=== PATIENT | male | born 1950 | race Two or more races ===

== ENCOUNTER 2020-01-23 17:07 | Emergency (ER) | payer OTHER ==
[~2020-01-23] VITALS: Ht 175.3 cm; Wt 90.0 kg
[2020-01-23] MEDS ORDERED: SODIUM CHLORIDE 0.9% 1,000 ML IV ONE (18:28)
[2020-01-23] MEDS ORDERED: DICYCLOMINE 10 MG/5 ML ORAL SYR PO STA (18:28)
[2020-01-23] MEDS ORDERED: MAGNESIUM/ALUMINUM HYDROXIDE/SIMETHICONE 30ML UDC PO STA (18:28)
[2020-01-23] MEDS ORDERED: ONDANSETRON HCL 4MG/2ML INJ IV STA (18:28)
[2020-01-23 19:03] LABS: BASOPHILS % 0.2 % (0.0-2.0); EOSINOPHILS % 1.2 % (0.0-5.0); HEMATOCRIT. 53.7 % (42.0-52.0); HEMOGLOBIN. 18.8 g/dL (14.0-18.0); LYMPHOCYTES % 10.4 % (20.0-50.0); MEAN CORPUSCULAR VOLUME 97.2 fL (80.0-94.0); MEAN PLATELET VOLUME 8.4 fl (7.4-10.4); MONOCYTES % 3.7 % (2.0-8.0); NEUTROPHILS % 84.5 % (40.0-76.0); PLATELET 235 x1000/uL (130-400); RED BLOOD CELL COUNT 5.53 mill/uL (4.7-6.1); RED CELL DISTRIBUTION WIDTH 12.8 % (11.6-14.6)
[2020-01-23 19:04] LABS: CHLORIDE 106 mEq/L (98-107)
[2020-01-23 19:10] LABS: PROTHROMBIN TIME 10.9 sec (9.6-11.0)
[2020-01-23] MEDS ORDERED: LOPERAMIDE HCL 2MG CAPSULE PO ONE (20:30)
[2020-01-23 22:26] VITALS: BP 128/74
== END 2020-01-23 22:28 | disposition home or self-care (01) ==
LOC: ER 17:07
DX: R11.2 Nausea with vomiting, unspecified (principal); I11.9 Hypertensive heart disease without heart failure; E78.00 Pure hypercholesterolemia, unspecified
CPT/HCPCS: 36415; 80053; 83690; 85025; 85610; 93005; 96374; 99284; J2405; J7030